=== PATIENT | male | born 1990 | race Native Hawaiian/Other Pacific Islander ===

== ENCOUNTER 2018-08-09 09:19 | Emergency (ER) | payer OTHER ==
[~2018-08-09] VITALS: Ht 182.9 cm; Wt 136.1 kg
[2018-08-09 09:40] VITALS: TEMP 97
[2018-08-09 14:31] VITALS: BP 127/74
== END 2018-08-09 14:33 | disposition home or self-care (01) ==
LOC: ED 09:19
PROC: 2W3CX1Z Immobilization of Right Lower Arm using Splint (ICD-10-PCS; principal; 2018-08-09)
PROC: 0PSPXZZ Reposition Right Metacarpal, External Approach (ICD-10-PCS; 2018-08-09)
DX: S62.306A Unspecified fracture of fifth metacarpal bone, right hand, initial encounter for closed fracture (principal); S60.416A Abrasion of right little finger, initial encounter; W22.8XXA Striking against or struck by other objects, initial encounter
CPT/HCPCS: 99283; J7040